=== PATIENT | female | born 1945 | race Caucasian/White ===

== ENCOUNTER 2024-10-02 17:08 | Emergency (ER) | payer OTHER ==
[~2024-10-02] VITALS: Ht 165.1 cm; Wt 68.0 kg
[2024-10-02] MEDS ORDERED: WARFARIN SODIU2.5 MG PO (17:40)
[2024-10-02] MEDS ORDERED: TOPROL XL25 M1 PO (17:40)
[2024-10-02] MEDS ORDERED: REPATHA SU140 MG/1 M SQ (17:40)
[2024-10-02] MEDS ORDERED: FLECAINIDE ACET50 MG PO (17:40)
[2024-10-02] MEDS ORDERED: FLUOXETINE DR90 MG PO (17:41)
[2024-10-02] MEDS ORDERED: CEFTRIAXONE SODIUM 1,000 MG VIAL IM ONE (18:00)
[2024-10-02 19:18] LABS: HEMATOCRIT 38.9 % (36.0-45.00); HEMOGLOBIN 12.5 g/dL (12.0-15.00); MEAN CELL VOLUME 81.7 fL (80.00-100.00); MEAN CORPUSCULAR HEMOGLOBIN 26.3 pg (27.00-32.0); MEAN CORPUSCULAR HGB CONC 32.2 g/dl (32.0-36.0); PLATELET COUNT 314 K/uL (150-450); RED BLOOD COUNT 4.76 M/uL (4.00-6.00); RED CELL DISTRIBUTION WIDTH 14.9 % (11.5-14.5)
[2024-10-02 19:33] LABS: URINE APPEARANCE Turbid; URINE BILIRRUBIN Small (NEGATIVE); URINE BLOOD Large; URINE COLOR Red; URINE GLUCOSE Negative (NEGATIVE); URINE KETONE Negative (NEGATIVE); URINE LEUKOCYTE Large; URINE NITRATE Negative; URINE UROBILINOGEN 0.2 E.U./dl
[2024-10-02 19:37] LABS: URINE BACTERIA 647.4 uL (0.0-1933); URINE CAST 1.83 uL (0.0-1.40); URINE EPITHELIAL CELLS 45.1 uL (0.0-38.8)
[2024-10-02 19:48] LABS: URINE PROTEIN 100 (NEGATIVE); URINE RBC > 10558.9 uL (0.0-20.8); URINE WBC > 5548.3 uL (0.0-23.2)
[2024-10-02 19:50] LABS: INR 2.77
[2024-10-02 20:06] LABS: PARTIAL THROMBOPLASTIN TIME 46.9 SECONDS (22.0-34.0)
[2024-10-02] MEDS ORDERED: CIPRO500 MG PO (20:12)
== END 2024-10-02 20:33 | disposition home or self-care (01) ==
LOC: ER 17:11
PROVIDERS: General Practice
DX: N39.0 Urinary tract infection, site not specified (principal); I10 Essential (primary) hypertension; Z88.0 Allergy status to penicillin
CPT/HCPCS: 96372; 99282; J0696

== ENCOUNTER 2024-10-05 14:45 | Inpatient (IN) | payer OTHER ==
[~2024-10-05] VITALS: Ht 157.5 cm; Wt 54.4 kg
[~2024-10-05 14:45] MED LIST: CIPRO500 MG PO; FLECAINIDE ACET50 MG PO; FLUOXETINE DR90 MG PO; REPATHA SU140 MG/1 M SQ; TOPROL XL25 M1 PO; WARFARIN SODIU2.5 MG PO
[2024-10-05] MEDS ORDERED: 0.9 % SODIUM CHLORIDE 500 ML IV STA (16:50)
[2024-10-05 17:32] LABS: HEMATOCRIT 38.6 % (36.0-45.00); HEMOGLOBIN 12.3 g/dL (12.0-15.00); MEAN CORPUSCULAR HEMOGLOBIN 26.3 pg (27.00-32.0); PLATELET COUNT 245 K/uL (150-450); RED CELL DISTRIBUTION WIDTH 14.6 % (11.5-14.5)
[2024-10-05 17:55] LABS: MAGNESIUM 2.1 mg/dL (1.8-2.4); PHOSPHOROUS 3.3 mg/dL (2.5-4.9)
[2024-10-05 17:59] LABS: ALBUMIN 3.6 gm/dL (3.4-5.0); BILIRUBIN TOTAL 0.31 mg/dL (0.3-1.2); CALCIUM 9.3 mg/dL (8.5-10.1); CREATININE SERUM 1.27 mg/dL (0.55-1.02); GFR 40.7; GLOBULINA 3.4 G/DL (2.4-3.5); POTASSIUM 4.12 mEq/L (3.5-5.1)
[2024-10-05] MEDS ORDERED: ACETAMINOPHEN 500 MG GEL..CAP PO PRN (20:45)
[2024-10-05] MEDS ORDERED: WARFARIN SODIUM 2.5 MG TABLET PO SCH (21:00)
[2024-10-05] MEDS ORDERED: FUROsemide 20 MG/2 ML VIAL IV SCH (21:00)
[2024-10-05] MEDS ORDERED: 0.9 % SODIUM CHLORIDE 1,000 ML IV SCH (21:00)
[2024-10-05] MEDS ORDERED: FUROsemide 20 MG/2 ML VIAL ONE (21:16)
[2024-10-05 21:29] LABS: ABG PH 7.428 (7.35-7.45); ABG PO2 67.3 mmHg (80-100); ABG pCO2 36.4 mmHg (35-45); BASE EXCESS -0.4 mmol/l; BICARBONATE 23.5 mmol/l (23-25); SaO2 93.6 %; Tco2 24.6 mmol/l
[2024-10-05 21:48] LABS: allen test SATISFACTORY; o2 21 %; puncture site RADIAL RIGHT
[2024-10-05 21:58] VITALS: BP 105/70; O2SAT 96
[2024-10-05 22:07] LABS: D DIMER < 0.19 MG/L
[2024-10-05 22:11] LABS: INR 2.28; PARTIAL THROMBOPLASTIN TIME 46.4 SECONDS (22.0-34.0); PROTHROMBIN TIME 23.4 SECONDS (9.0-11.5)
[2024-10-05 23:27] LABS: PH,URINE 5.5 (5.0-8.0); URINE APPEARANCE Clear; URINE BILIRRUBIN Negative (NEGATIVE); URINE BLOOD Negative; URINE COLOR Yellow; URINE GLUCOSE Negative (NEGATIVE); URINE KETONE 15 (NEGATIVE); URINE LEUKOCYTE Negative; URINE NITRATE Negative; URINE PROTEIN Trace (NEGATIVE); URINE UROBILINOGEN 0.2 E.U./dl
[2024-10-05 23:31] LABS: URINE EPITHELIAL CELLS 24.2 uL (0.0-38.8); URINE RBC 21.8 uL (0.0-20.8); URINE WBC 13.6 uL (0.0-23.2)
[2024-10-05 23:32] LABS: URINE CAST 0.29 uL (0.0-1.40)
[2024-10-06] VITALS (9 sets, daily range): BP systolic 90–102; BP diastolic 55–70; O2SAT 90–98
[2024-10-06] MEDS ORDERED: FAMOTIDINE/PF 20 MG in 0.9 % SODIUM CHLORIDE 8 ML IV PUSH SCH (09:00)
[2024-10-06] MEDS ORDERED: METOPROLOL SUCCINATE 25 MG TAB.SR.24H PO SCH (09:00)
[2024-10-07] VITALS (8 sets, daily range): BP systolic 80–83; BP diastolic 48–56; O2SAT 87–100
[2024-10-07] MEDS ORDERED: FAMOTIDINE/PF 20 MG/2 ML VIAL ONE (08:04)
[2024-10-07 08:50] LABS: ALBUMIN 3.2 gm/dL (3.4-5.0); BILIRUBIN TOTAL 0.29 mg/dL (0.3-1.2); CALCIUM 8.7 mg/dL (8.5-10.1); CREATININE SERUM 1.08 mg/dL (0.55-1.02); GFR 49.06; GLOBULINA 2.6 G/DL (2.4-3.5); POTASSIUM 4.33 mEq/L (3.5-5.1); TOTAL PROTEIN 5.8 gm/dL (6.4-8.2)
[2024-10-07] MEDS ORDERED: ONDANSETRON HCL 2 MG/ML VIAL IV PRN (10:00)
[2024-10-07 15:56] LABS: HEMATOCRIT 39.6 % (36.0-45.00); HEMOGLOBIN 12.6 g/dL (12.0-15.00); MEAN CELL VOLUME 82.4 fL (80.00-100.00); MEAN CORPUSCULAR HEMOGLOBIN 26.2 pg (27.00-32.0); MEAN CORPUSCULAR HGB CONC 31.8 g/dl (32.0-36.0); PLATELET COUNT 221 K/uL (150-450); RED BLOOD COUNT 4.81 M/uL (4.00-6.00); RED CELL DISTRIBUTION WIDTH 14.6 % (11.5-14.5)
[2024-10-07] MEDS ORDERED: 0.9 % SODIUM CHLORIDE 10 ML VIAL IJ ONE (18:14)
[2024-10-07 20:17] LABS: URINE APPEARANCE Cloudy; URINE BILIRRUBIN Negative (NEGATIVE); URINE BLOOD Negative; URINE COLOR Yellow; URINE GLUCOSE Negative (NEGATIVE); URINE KETONE Negative (NEGATIVE); URINE LEUKOCYTE Negative; URINE NITRATE Negative; URINE PROTEIN Trace (NEGATIVE); URINE UROBILINOGEN 0.2 E.U./dl
[2024-10-07 20:20] LABS: URINE CAST 1.62 uL (0.0-1.40); URINE EPITHELIAL CELLS 10.1 uL (0.0-38.8); URINE RBC 4.5 uL (0.0-20.8)
[2024-10-07 20:21] LABS: URINE BACTERIA 3.6 uL (0.0-1933)
[2024-10-08] VITALS (8 sets, daily range): BP systolic 81–94; BP diastolic 53–63; O2SAT 90–100
[2024-10-08] MEDS ORDERED: FAMOTIDINE/PF 20 MG/2 ML VIAL ONE (07:31)
[2024-10-08] MEDS ORDERED: PANTOPRAZOLE SODIUM 40 MG TABLET.DR PO NR (11:00)
[2024-10-09] VITALS (8 sets, daily range): BP systolic 96–107; BP diastolic 69–72; O2SAT 90–100
[2024-10-09] MEDS ORDERED: PANTOPRAZOLE SODIUM 40 MG TABLET.DR PO SCH (09:00)
[2024-10-09] MEDS ORDERED: FLUOXETINE HCL 10 MG CAPSULE PO SCH (09:00)
[2024-10-09] MEDS ORDERED: CLONAZEPAM 0.5 MG TABLET PO SCH (09:00)
[2024-10-09 11:56] LABS: HEMATOCRIT 39.3 % (36.0-45.00); HEMOGLOBIN 12.8 g/dL (12.0-15.00); MEAN CELL VOLUME 82.7 fL (80.00-100.00); MEAN CORPUSCULAR HEMOGLOBIN 26.9 pg (27.00-32.0); MEAN CORPUSCULAR HGB CONC 32.5 g/dl (32.0-36.0); PLATELET COUNT 239 K/uL (150-450); RED BLOOD COUNT 4.76 M/uL (4.00-6.00); RED CELL DISTRIBUTION WIDTH 14.4 % (11.5-14.5)
[2024-10-09 12:40] LABS: ALBUMIN 3.1 gm/dL (3.4-5.0); BILIRUBIN TOTAL 0.26 mg/dL (0.3-1.2); CALCIUM 8.7 mg/dL (8.5-10.1); CREATININE SERUM 1.14 mg/dL (0.55-1.02); GFR 46.1; GLOBULINA 2.9 G/DL (2.4-3.5); POTASSIUM 4.29 mEq/L (3.5-5.1)
[2024-10-10 02:36] VITALS: BP 90/55; O2SAT 98
[2024-10-10] MEDS ORDERED: LEVOTHYROXINE SODIUM 100 MCG TABLET PO SCH (06:00)
== END 2024-10-10 08:12 | disposition home or self-care (01) | DRG 291 ==
LOC: ER 14:48 → MEDJ 21:28
PROVIDERS: Emergency Medicine; General Practice; Internal Medicine; ADMIT Student in an Organized Health Care Education/Training Program; ATTEND Student in an Organized Health Care Education/Training Program
PROC: BW28ZZZ Computerized Tomography (CT Scan) of Head (ICD-10-PCS; 2024-10-05)
PROC: B24BZZZ Ultrasonography of Heart with Aorta (ICD-10-PCS; 2024-10-05)
PROC: 4A12X4Z Monitoring of Cardiac Electrical Activity, External Approach (ICD-10-PCS; principal; 2024-10-06)
DX: I11.0 Hypertensive heart disease with heart failure (principal); I50.33 Acute on chronic diastolic (congestive) heart failure; N17.9 Acute kidney failure, unspecified; I48.91 Unspecified atrial fibrillation; Z95.0 Presence of cardiac pacemaker; Z79.01 Long term (current) use of anticoagulants; I34.0 Nonrheumatic mitral (valve) insufficiency; I95.1 Orthostatic hypotension